=== PATIENT | male | born 1945 | race Caucasian/White ===

== ENCOUNTER → 2016-09-05 | Outpatient (CLI) | payer MEDICARE, OTHER | END | disposition home or self-care (01) | LOC: GMAL 10:25 | PROVIDERS: ATTEND Family Medicine | DX: D51.3 Other dietary vitamin B12 deficiency anemia (principal); E55.9 Vitamin D deficiency, unspecified ==

== ENCOUNTER → 2016-12-05 | Outpatient (CLI) | payer MEDICARE, OTHER | END | disposition home or self-care (01) | LOC: GMAL 10:17 | PROVIDERS: ATTEND Family Medicine | DX: D51.3 Other dietary vitamin B12 deficiency anemia (principal); E55.9 Vitamin D deficiency, unspecified ==

== ENCOUNTER → 2017-08-10 | Outpatient (CLI) | payer MEDICARE, OTHER ==
--- NOTE | 2017-08-10 10:35 | MRI ---
EXAM DESCRIPTION: Lumbar Spine w/o Contrast MRI. CLINICAL HISTORY: LOW BACK PAIN COMPARISON: MRI lumbar spine 03/29/2016. TECHNIQUE: Multiplanar, multiple standard sequences, non contrast MRI, lumbar spine. FINDINGS: L5-S1: Disc desiccation. Tiny posterior bulge. No canal narrowing. Mild bilateral foraminal narrowing. Posterior elements are negative. L4-5: Disc desiccation. No bulging with disc space maintained. Posterior flavum ligament hypertrophy. Normal facets. Mild canal narrowing. Bilateral foramina patent. L3-4: Disc desiccation and minimal anterior bulging with anterior endplate ridging. Disc space maintained. Tiny posterior bulge. Minimal posterior flavum ligament hypertrophy. Mild to moderate canal narrowing. Left foramen patent. Minimal disc bulge into the right foramen abutting the exiting right L3 nerve with moderate canal narrowing. L2-3: Disc desiccation with disc space preserved. Anterior bulging and endplate ridging. Tiny posterior bulge. Posterior elements unremarkable. Bilateral foramina are patent. L1-L2: Disc desiccation. Minimal anterior bulging and endplate ridging. Small Schmorl's node inferior L1 endplate. Tiny posterior disc bulge. Mild flavum ligament hypertrophy and mild canal narrowing. Bilateral foramina are patent. Conus terminates just above this level. T12-L1: Disc desiccation. Anterior disc bulge to the left of midline. Tiny posterior bulge. Posterior elements are unremarkable. No significant canal narrowing bilateral foramina are patent. Right focal T1 and T2 signal in the posterior superior L1 vertebral body stable since the prior study. Paravertebral soft tissues show paraspinal muscle atrophy in the lower lumbar and sacral region.. Normal marrow signal in the remaining vertebral bodies and the posterior elements. Vertebral bodies are not compressed . IMPRESSION: 1. Tiny posterior L3-4 disc bulge with minimal anterior spondylosis. Ligament hypertrophy. Disc bulge into the right foramen abutting the left L3 nerve. This has progressed since the prior study. Moderate canal narrowing but no stenosis. 2. No significant disc bulging at other levels. No canal or foraminal stenosis. Minimal anterior disc bulge and spondylosis at L2-3. Hemangioma superior posterior L1 vertebral body stable since the prior study. Electronically signed by: Wilton Vargas MD 08/10/2017 10:34 AM [facility]
== END ==
LOC: MRI 09:00
PROVIDERS: ATTEND Family Medicine
DX: M54.5 Low back pain (principal)

== ENCOUNTER → 2017-12-28 | Outpatient (CLI) | payer MEDICARE, OTHER | LOC: GMAL 10:31 | PROVIDERS: ATTEND Family Medicine | DX: D51.3 Other dietary vitamin B12 deficiency anemia (principal); E55.9 Vitamin D deficiency, unspecified; Z12.5 Encounter for screening for malignant neoplasm of prostate | CPT/HCPCS: 82306; 82607; G0103 ==

== ENCOUNTER → 2019-04-12 | Outpatient (CLI) | payer MEDICARE, OTHER | LOC: GMAL 10:34 | PROVIDERS: ATTEND Family Medicine | DX: D51.3 Other dietary vitamin B12 deficiency anemia (principal); R53.83 Other fatigue; I10 Essential (primary) hypertension; E78.49 Other hyperlipidemia; E55.9 Vitamin D deficiency, unspecified; E11.9 Type 2 diabetes mellitus without complications; Z12.5 Encounter for screening for malignant neoplasm of prostate | CPT/HCPCS: 82306; 82607; 84443; G0103 ==

== ENCOUNTER → 2020-05-12 | Outpatient (CLI) | payer MEDICARE, OTHER | LOC: GMAL 10:50 | PROVIDERS: ATTEND Family Medicine | DX: E29.1 Testicular hypofunction (principal); E11.9 Type 2 diabetes mellitus without complications; E78.49 Other hyperlipidemia; Z79.899 Other long term (current) drug therapy ==